=== PATIENT | female | born 2000 | race Caucasian/White ===

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

== ENCOUNTER 2020-01-21 13:56 | Emergency (ER) | payer SELFPAY ==
[2020-01-21 13:57] VITALS: BP 125/61; PULSE 95; RESP 16; TEMP 36.3; O2SAT 99; BMI 25.7
--- NOTE | 2020-01-21 14:53 | ED.RN ---
PT LEFT WITHOUT BEING SEEN. 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
== END 2020-01-21 15:23 | disposition left against medical advice (07) ==
LOC: ED 14:55
PROVIDERS: Emergency Provider Emergency Medicine; PCP Pediatrics
DX: F32.9 Major depressive disorder, single episode, unspecified (principal)

== ENCOUNTER 2021-11-07 22:04 | Emergency (ER) | payer MEDICAID, SELFPAY ==
[2021-11-07 22:06] VITALS: BP 129/84; PULSE 87; RESP 15; TEMP 36.6; O2SAT 98; BMI 26.6
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
== END 2021-11-07 23:04 | disposition home or self-care (01) ==
LOC: ED 22:59
PROVIDERS: Emergency Provider Emergency Medicine; Visit Provider Emergency Medicine
DX: R21 Rash and other nonspecific skin eruption (principal); F41.9 Anxiety disorder, unspecified
CPT/HCPCS: 99282

== ENCOUNTER 2021-12-21 15:01 | Emergency (ER) | payer MEDICAID, SELFPAY ==
[2021-12-21 15:02] VITALS: BP 137/98; PULSE 81; RESP 16; TEMP 37.1; O2SAT 100; BMI 28.5
[2021-12-21 15:04] VITALS: O2SAT 99
--- NOTE | 2021-12-21 15:24 | EDS_ITS ---
HPI History of Present Illness Chief Complaint: Shortness of Breath Narrative Narrative: Patient is concerned she may be having a reaction to her control that she started 2 days ago or possibly to the old house that she lives and that might have black mold. Patient states she was driving to work today and felt a little short of breath. She was also little nauseated. She had mild headache. She just did not feel well. Not lightheaded or syncopal. No chest pain. No leg pain or swelling. She just started a new control pill 2 days ago. She has been on it in the past with no problems. Ever since starting that she has had nausea and just has not felt well. She is not sure if the shortness of breath is related. It is already better although still present slightly. She has never vomited and is eating and drinking. No diarrhea. No fevers. No muscle aches. Patient also states that she lives in an old house that she is pretty sure has black mold in the basement. Has a lot of old house smells. She has a blanket up to block odors and air coming from the basement. But she is wondering if that might be contributing to. Patient does have a history of anxiety and panic attacks but it has been a long time since she has had 1. This mostly occurred was when she was in a stressful living situation. She also used to use inhalers for breathing and wheezing but has not used 1 in many years. She has no travel surgery immobilization personal or family history of DVT or PE. PFSH PFSH Home Medications albuterol sulfate 90 mcg/actuation aerosol inhaler (Ventolin HFA) 2 puff inhalation Q4H PRN PRN Wheezing ##1 12/21/21 [Rx Last Taken Unknown] norgestimate 0.25 mg-ethinyl estradiol 35 mcg tablet (Sprintec (28)) tab 12/21/21 [History Last Taken Unknown] ondansetron 4 mg disintegrating tablet 4 mg PO Q8H PRN nausea and vomiting #10 tabs 12/21/21 [Rx Last Taken Unknown] ulipristal 30 mg tablet (Beverly) mg PO 12/21/21 [History Last Taken Unknown] Allergy/AdvReac Type Severity Reaction Status Date / Time azithromycin [From Zithromax] Allergy Unknown Verified 12/21/21 15:01 Surgical History History of tonsillectomy Social History Smoking Status: Current some day smoker tobacco type: cigarettes and e- cigarettes ROS ROS ED Constitutional Constitutional ED: Denies chills, fever(s) or subjective Eyes Eyes: Denies change in vision ENT ENT ED: Denies ear pain, rhinorrhea or sore throat Cardiovascular Cardiovascular: Denies chest pain, palpitations or racing heartbeat Respiratory/Chest Respiratory/Chest: Reports dyspnea; Denies cough, dyspnea on exertion or sputum Gastrointestinal Gastrointestinal: Reports nausea; Denies abdominal pain, diarrhea or vomiting Genitourinary Genitourinary ED: Denies dysuria or hematuria Integumentary Denies rash Neurologic Neurologic: Denies paresthesias or weakness Psychiatric Psychiatric: Reports anxiety Endocrine Endocrinology: Denies polydipsia or polyuria Hematologic/Lymphatic Hematologic/Lymphatic: Denies easy bleeding, easy bruising or lymphadenopathy Allergic/Immunologic Allergic/Immunologic ED: Denies mouth swelling, tongue swelling or urticaria EXAM Physical Exam Const Vital Signs: 12/21/21 15:02 12/21/21 15:04 12/21/21 15:38 Temperature 98.7 F Temperature Source Oral Pulse Rate 81 80 Respiratory Rate 16 16 Respiratory Effort Short of Breath Respiratory Depth Normal Respiratory Pattern Normal Blood Pressure 137/98 H Blood Pressure Mean 111 Pulse Ox 100 Oxygen Delivery Method Room Air Room Air 12/21/21 15:38 Temperature Temperature Source Pulse Rate Respiratory Rate Respiratory Effort Respiratory Depth Respiratory Pattern Blood Pressure Blood Pressure Mean Pulse Ox 99 Oxygen Delivery Method Room Air Positive well nourished and well developed Constitutional Narrative: Patient is sitting in bed relaxed and comfortable. Oxygen saturation is 100% on room air the entire time. Breathing is easy and unlabored. General Appearance ED: well developed and NAD; Negative for pallor HEENT Reports moist mucous membranes HEENT Narrative: No erythema or swelling Eyes General Eye ED: Negative for scleral icterus Neck supple and no JVD Neck Narrative: No stridor Resp normal respiratory effort and clear to auscultation bilaterally Effort and Inspection: Negative for retractions Auscultation: Negative for rales, rhonchi or wheezes Cardio regular rate, regular rhythm and no murmurs Rate: Negative for tachycardic GI normal to inspection, nondistended, normoactive bowel sounds and non-tender Back/Spine no CVA tenderness Extremity normal to inspection Extremity Narrative: No edema, cords, tenderness, asymmetry or distended veins Neuro Sensorium / Orientation: alert Psych Psych Narrative: Mildly flat affect. Mood & Affect: Negative for depressed, anxious or tearful Skin no rashes or lesions noted General Skin Exam: Negative for jaundice or pallor MDM MDM MDM Narrative Medical decision making narrative: Patient's EKG is unremarkable. Single view chest x-ray looked at by me shows no sign of acute infiltrative process. No pneumothorax. Cardiac silhouette is normal. Patient is rechecked. She feels that the breathing treatment did help her breathing. She has a hint of the nausea but that is improving. She states that she was on the same control when she was about 16 and she remembers she had some problems with it but not sure what they were. She will talk to her doctor about options. She states she plans to have a tubal ligation in the next 2 or so months. I will write for some albuterol and Zofran. We discussed returning if she gets more dyspnea, fevers, chest pain, leg swelling hemoptysis or any other concerns EKG Initial EKG: Comments: EKG done for intermittent dyspnea read by me shows a normal sinus rhythm. Overall rate of 72. No ectopy noted. No acute ST elevation or depression. [place] interval, QRS duration and QTc normal. Discharge Plan Triage Chief Complaint: Shortness of Breath ED Provider: Lamont Rodriguez Dx/Rx/DC Orders Clinical Impression: Acute dyspnea, Acute bronchospasm, Nausea, Medication reaction Instructions: ED Dyspnea Prescriptions: New albuterol sulfate [Ventolin HFA] 90 mcg/actuation HFA aerosol inhaler 2 puff inhalation Q4H PRN PRN (Reason: Wheezing) Qty: 1 0RF ondansetron 4 mg tablet,disintegrating 4 mg PO Q8H PRN (Reason: nausea and vomiting) Qty: 10 0RF No Action norgestimate-ethinyl estradiol [Sprintec (28)] 0.25-35 mg-mcg tablet Label Comments: TAKE 1 ACTIVE TABLET ONLY BY MOUTH ONCE DAILY AT THE SAME TIME EACH DAY Beverly 30 mg tablet PO Primary Care Provider: Care Physician,No Primary Referrals: Care Physician,No Primary [Primary Care Provider] - Activity Restrictions/Additional Instructions: Follow-up with your doctor to discuss options of control. Disposition Disposition: Home, Self Care
[2021-12-21] MEDS: Ipratropium/Albuterol Sulfate 3 ML AMPUL.NEB INHALATION (15:35)
[2021-12-21] MEDS: Ondansetron ODT 4 MG Tablet PO (15:36)
--- NOTE | 2021-12-21 15:37 | EKG12_ITS ---
Test Reason : SOB Blood Pressure : / mmHG Vent. Rate : 072 BPM Atrial Rate : 072 BPM P-R Int : 138 ms QRS Dur : 084 ms QT Int : 390 ms P-R-T Axes : 018 025 017 degrees QTc Int : 427 ms Normal sinus rhythm Normal ECG Confirmed by MAUREEN OCASIO, MARTA ([id number]), editorial intern GISSELLE AGUILAR ([id number]) on 12/24/2021 11:00:32 AM Referred By: Confirmed By:MARTA REDDY MD
[2021-12-21 15:38] VITALS: PULSE 80; RESP 16; O2SAT 99
--- NOTE | 2021-12-21 15:50 | RAD_ITS ---
EXAM: XR CHEST, 1 VIEW CLINICAL INDICATION: cough TECHNIQUE: Frontal view of the chest. This report was created using [employer] report generation technology. COMPARISON: XR Chest dated 05/29/2014 FINDINGS: LUNGS AND PLEURAL SPACES: Normal. No consolidation or edema. No pneumothorax. No effusion. HEART: Normal heart size. MEDIASTINUM: Central airways are unremarkable. No mediastinal or hilar mass. BONES/JOINTS: No acute abnormality. SOFT TISSUES: Normal. RAD/Chest 1 View (Portable) IMPRESSION: No acute cardiopulmonary abnormality. Electronically Signed: Ivan Tran MD at 16:37 EDT ,
[2021-12-21 16:28] VITALS: BP 112/73; RESP 16; O2SAT 98
== END 2021-12-21 16:29 | disposition home or self-care (01) ==
PROVIDERS: Emergency Provider Emergency Medicine; Visit Provider Emergency Medicine
DX: T50.905A Adverse effect of unspecified drugs, medicaments and biological substances, initial encounter (principal); J98.01 Acute bronchospasm; F17.210 Nicotine dependence, cigarettes, uncomplicated; R11.0 Nausea; F41.9 Anxiety disorder, unspecified; R06.00 Dyspnea, unspecified; F17.290 Nicotine dependence, other tobacco product, uncomplicated
CPT/HCPCS: 71045; 93005; 94640; 99282

== ENCOUNTER 2022-08-10 19:52 | Emergency (ER) | payer MEDICAID, SELFPAY ==
[2022-08-10 19:53] VITALS: BP 122/82; PULSE 88; RESP 16; TEMP 37.1; O2SAT 98; BMI 25.9
--- NOTE | 2022-08-10 20:15 | EDS_ITS ---
HPI History of Present Illness Chief Complaint: Sore Throat Informant: patient Onset/Context/Timing Onset: Yesterday Narrative Narrative: Patient presents secondary to sore throat. She states developed symptoms yes terday complains of throat pain that is now painful with swallowing. She did not have a thermometer to check her temperature. She has had a mild cough. Patient also mentions that she has urinary frequency and some slight pressure with strong odor to her urine. She states that has been present since she had surgery in March and is concerned she may have a UTI. PFSH PFSH Home Medications albuterol sulfate 90 mcg/actuation aerosol inhaler (Ventolin HFA) 2 puff inhalation Q4H PRN PRN Wheezing ##1 12/21/21 [Rx Last Taken Unknown] norgestimate 0.25 mg-ethinyl estradiol 35 mcg tablet (Sprintec (28)) tab 12/21/21 [History Last Taken Unknown] ondansetron 4 mg disintegrating tablet 4 mg PO Q8H PRN nausea and vomiting #10 tabs 12/21/21 [Rx Last Taken Unknown] ulipristal 30 mg tablet (Beverly) mg PO 12/21/21 [History Last Taken Unknown] Allergy/AdvReac Type Severity Reaction Status Date / Time azithromycin [From Zithromax] Allergy Unknown Verified 08/10/22 19:55 Surgical History H/O bilateral salpingectomy History of tonsillectomy Social History Smoking Status: Current some day smoker tobacco type: cigarettes and e- cigarettes ROS ROS ED Constitutional Constitutional ED: Denies chills or fever(s) Eyes Eyes: Denies change in vision or discharge from eye(s) ENT ENT ED: Reports ear pain left and sore throat; Denies discharge from eye(s) or rhinorrhea Cardiovascular Cardiovascular: Denies chest pain or palpitations Respiratory/Chest Respiratory/Chest: Reports cough; Denies dyspnea Gastrointestinal Gastrointestinal: Denies abdominal pain, diarrhea, nausea or vomiting Genitourinary Genitourinary ED: Reports dysuria and urinary frequency; Denies difficulty urinating Musculoskeletal Musculoskeletal: Denies back pain or extremity pain Integumentary Denies Abrasions or rash Neurologic Neurologic: Denies headache(s) or weakness Allergic/Immunologic Allergic/Immunologic ED: Denies lip swelling or urticaria EXAM Physical Exam Const Vital Signs: 08/10/22 19:53 Temperature 98.8 F Temperature Source Temporal Pulse Rate 88 Respiratory Rate 16 Blood Pressure 122/82 H Blood Pressure Mean 95 Pulse Ox 98 Oxygen Delivery Method Room Air Positive well nourished and well developed General Appearance ED: well developed HEENT Reports normocephalic and head/scalp atraumatic HEENT Narrative: Mild posterior pharyngeal drainage. Uvula midline. Patient tolerating secretions well. Eyes PERRL and EOMs intact bilaterally Neck supple Chest Wall inspection of chest normal and palpation of chest normal Resp normal respiratory effort and clear to auscultation bilaterally Cardio regular rate and regular rhythm GI normal to inspection, nondistended, normoactive bowel sounds Palpation: soft Extremity normal to inspection Neuro oriented x3 and no sensory deficits noted Sensorium / Orientation: alert Motor Exam: strength 5/5 throughout Psych mental status grossly normal Skin no rashes or lesions noted MDM MDM MDM Narrative Medical decision making narrative: Rapid strep obtained to evaluate for acute infection. Urinalysis obtained to evaluate for UTI. Lab Data Attestation: I reviewed the patient's lab results. Labs: Laboratory Results - last 24 hr 08/10/22 20:10 Urine Color Yellow Urine Clarity Sl. Cloudy Urine pH 5.0 Ur Specific [place] 1.025 Urine Protein 30 H Urine Glucose (UA) Normal Urine Ketones 5 H Urine Occult Blood 10 H Urine Nitrite Negative Urine Bilirubin 1 H Urine Urobilinogen 1 H Ur Leukocyte Esterase 500 H Urine RBC 0-5 SEEN Urine WBC 5-10 SEEN Ur Squamous Epith Cells 10-25 SEEN Urine Bacteria 1+ Urine Mucus 0 SEEN Treatment and Re-Evaluation :: Rapid strep is negative. Patient was advised that it will be sent for a culture. Urinalysis is a contaminated sample with 10-25 epithelial cells. 5-10 white cells with 1+ bacteria are noted, however given the higher epithelial count I do not believe this represents acute infection. Nitrites are negative. Patient instructed to take Tylenol and ibuprofen along with pushing p.o. fluids. Cepacol lozenges will be ordered for her prior to discharge. Discharge Plan Triage Chief Complaint: Sore Throat Other Complaint: Complaint ED Provider: Fara Robles Dx/Rx/DC Orders Clinical Impression: Viral pharyngitis Instructions: ED Pharyngitis, Viral Prescriptions: No Action norgestimate-ethinyl estradiol [Sprintec (28)] 0.25-35 mg-mcg tablet Label Comments: TAKE 1 ACTIVE TABLET ONLY BY MOUTH ONCE DAILY AT THE SAME TIME EACH DAY Beverly 30 mg tablet PO albuterol sulfate [Ventolin HFA] 90 mcg/actuation HFA aerosol inhaler 2 puff inhalation Q4H PRN PRN (Reason: Wheezing) Qty: 1 0RF ondansetron 4 mg tablet,disintegrating 4 mg PO Q8H PRN (Reason: nausea and vomiting) Qty: 10 0RF Primary Care Provider: Care Physician,No Primary Referrals: Renuka Foster MD [Med Staff - Disability Insurance Claim Examiner] - As Needed Care Physician,No Primary [Primary Care Provider] - Disposition Disposition: Home, Self Care
[2022-08-10 20:17] LABS: Mucous, Urine 0 SEEN /hpf (<or=2+)
[2022-08-10 20:20] LABS: Color, Urine Yellow (Yellow); Glucose, Dipstick Normal (Normal); Ketone-Dipstick 5 mg/dl (Negative); Leukocyte Esterase-Dipstick 500 /ul (Negative); Nitrite-Dipstick Negative (Negative); Occult Blood-Urine 10 /ul (Negative); Protein-Dipstick 30 mg/dl (Negative); Specific Gravity, Urine 1.025 (1.002-1.030); Urine Clarity Sl. Cloudy (Clear); Urine Urobilinogen 1 mg/dl (Normal)
[2022-08-10 20:39] LABS: Squamous Epithelial Cells - UA 10-25 SEEN /hpf (5-10); Urine Bilirubin Dipstick 1 mg/dL (Negative)
[2022-08-10 20:40] LABS: Bacteria 1+ /hpf (None Seen); Red Blood Cells-Urine 0-5 SEEN /hpf (0-5); White Blood Cells 5-10 SEEN /hpf (0-5)
[2022-08-10] MEDS: BENZOCAINE/MENTHOL 1 LOZENGE 2 LOZENGE MUCOUS MEM (21:12)
== END 2022-08-10 21:13 | disposition home or self-care (01) ==
PROVIDERS: Emergency Provider Emergency Medicine; Visit Provider Emergency Medicine
DX: J02.8 Acute pharyngitis due to other specified organisms (principal); F17.210 Nicotine dependence, cigarettes, uncomplicated; R35.0 Frequency of micturition; F17.290 Nicotine dependence, other tobacco product, uncomplicated
CPT/HCPCS: 81001; 87880; 99283

== ENCOUNTER → 2022-08-20 | Outpatient (CLI) | payer MEDICAID, SELFPAY ==
[2022-08-20 14:52] LABS: Absolute Lymphocyte Count 1.88 X10^3/uL (0.83-4.51); Absolute Neutrophil Count 2.6 X10^3/uL (2.0-7.7); Basophil# 0.05 X10^3/uL; Eosinophil# 0.11 X10^3/uL; Eosinophils% 2.2 % (0-5); Hematocrit 38.5 % (37-47); Hemoglobin 13.5 g/dL (12.0-15.0); Lymphocyte # 1.88 X10^3/ul (0.83-4.51); Lymphocyte % 36.8 % (19-41); Mean Corp Hgb Conc 35.1 g/dL (32-36); Mean Corpuscular Volume 88.5 fL (81-99); Mean Platelet Vol. 10.8 fl (6.2-12.0); Monocyte# 0.44 X10^3/uL; Monocyte% 8.6 % (0-10); NRBC Flagged by Analyzer 0 % (0-5); Neutrophil # 2.61 X10^3/uL (2.7-7.7); Platelet Count 293 K/mm3 (150-450); RBC Distribution Width CV 11.9 % (11.6-14.6); RBC Distribution Width SD 38.6 fl (35.1-43.9); Red Blood Count 4.35 M/mm3 (4.2-5.4); White Blood Count 5.1 K/mm3 (4.4-11.0)
[2022-08-20 15:18] LABS: Hemoglobin A1c 4.7 % (3.8-5.6)
[2022-08-20 16:31] LABS: Estradiol 140.4 pg/mL; Follicle Stimulating Hormone 3.7 mIU/mL; Prolactin 22.6 ng/mL; T4 Free Direct 1.02 ng/dL (0.76-1.46); Thyroid Stim Hormone (TSH) 0.57 uIU/mL (0.358-3.74)
[2022-08-27 08:11] LABS: Testosterone, % Free 1.82 % (0.50-2.80); Testosterone, Free 0.24 ng/dL (0.10-0.85); Testosterone, Total 13 ng/dL (13-71)
== END | disposition home or self-care (01) ==
LOC: WOBLAB 13:56
PROVIDERS: Visit Provider Nurse Practitioner Women's Health
DX: L65.9 Nonscarring hair loss, unspecified (principal)
CPT/HCPCS: 36415; 82670; 83001; 83002; 83036; 84146; 84402; 84403; 84439; 84443; 85025

== ENCOUNTER 2023-03-11 19:03 | Emergency (ER) | payer MEDICAID, SELFPAY ==
[2023-03-11 19:05] VITALS: BP 135/77; PULSE 66; RESP 14; TEMP 36.3; O2SAT 99; BMI 24.2
--- NOTE | 2023-03-11 19:22 | EX.ED.VIS.PS ---
HPI <ANGEL Snow - Last Filed: 03/11/23 20:58> HPI - Psych History of Present Illness Chief Complaint: Trauma Narrative Narrative: Patient presenting today after a suicide attempt that was made on Friday morning. She reports that she did cut herself several times on her bilateral forearms and then attempted to hang herself with a rope due to feeling depressed and wanted to end her life. However, once she started she no longer wanted to and was able to get out of the rope and called crisis. She was able to develop a safety plan. She has had some residual soreness to her neck as well as soreness to her throat. She reports that this is getting much better. However, her boyfriend became concerned and wanted her to be brought in for evaluation. She denies any current thoughts of suicide or self-harm. She denies any homicidal thoughts, visual/tactile/auditory hallucinations, and substance use. PFSH <ANGEL Snow - Last Filed: 03/11/23 20:58> PFSH Allergy/AdvReac Type Severity Reaction Status Date / Time azithromycin [From Zithromax] Allergy Unknown Verified 08/10/22 19:55 Surgical History (Updated 03/11/23 @ 21:11 by Dorita Rodriguez) H/O bilateral salpingectomy History of tonsillectomy Social History Smoking Status: Current some day smoker tobacco type: cigarettes and e-cigarettes ROS <ANGEL Snow - Last Filed: 03/11/23 20:58> ROS ED Constitutional Constitutional ED: Denies chills or fever(s) Cardiovascular Cardiovascular: Denies chest pain Respiratory/Chest Respiratory/Chest: Denies cough or dyspnea Gastrointestinal Gastrointestinal: Denies abdominal pain, nausea or vomiting Musculoskeletal Musculoskeletal: Reports neck pain; Denies arthralgias or myalgias Integumentary Reports Abrasions Neurologic Neurologic: Denies paresthesias or weakness Psychiatric Psychiatric: Reports anxiety and depression; Denies suicidal ideation EXAM <ANGEL Snow - Last Filed: 03/11/23 20:58> Physical Exam Const Vital Signs: 03/11/23 19:05 03/11/23 21:10 03/11/23 21:13 Temperature 97.4 F L Temperature Source Temporal Pulse Rate 66 60 60 Respiratory Rate 14 16 16 Blood Pressure 135/77 H 98/54 L 90/54 L Blood Pressure Mean 96 68 66 Pulse Ox 99 Oxygen Delivery Method Room Air Room Air Positive well nourished, well developed and no apparent distress General Appearance ED: well developed HEENT Reports normocephalic and head/scalp atraumatic Mouth ED: Yes moist mucous membranes normal Eyes PERRL and EOMs intact bilaterally Neck full ROM and supple Neck Narrative: Circumferential abrasion to the neck, full range of motion to the neck, no midline cervical tenderness. Chest Wall inspection of chest normal Resp normal respiratory effort and clear to auscultation bilaterally Cardio regular rate and regular rhythm GI soft to palpation, non-tender, non-distended and no masses Back/Spine normal ROM and normal to inspection Extremity normal to inspection and full ROM Neuro oriented x3, CN's II-XII intact bilaterally, moves all extremities, no focal motor deficits and no sensory deficits noted Sensorium / Orientation: awake and alert Psych mental status grossly normal, thought process normal and cooperative Appearance: grossly normal Attitude: calm Activity / Motor Behavior: appropriate eye contact Speech: normal speech Insight: insight good Judgement: judgement good <Dr. Hubert Pleitez DO - Last Filed: 03/11/23 23:46> Physical Exam Const Vital Signs: 03/11/23 19:05 03/11/23 21:10 03/11/23 21:13 Temperature 97.4 F L Temperature Source Temporal Pulse Rate 66 60 60 Respiratory Rate 14 16 16 Blood Pressure 135/77 H 98/54 L 90/54 L Blood Pressure Mean 96 68 66 Pulse Ox 99 Oxygen Delivery Method Room Air Room Air [facility] <ANGEL Snow - Last Filed: 03/11/23 20:58> [facility] Narrative Medical decision making narrative: Patient presenting requesting evaluation of her neck. She reports that Friday she was feeling suicidal and depressed and attempted to hang herself with a rope, but immediately regretted her decision and was able to get out of the rope. She has had some residual soreness to her neck with pain swallowing that is getting better. She did talk with crisis immediately after and developed a care plan. She denies currently feeling suicidal. She does have a circumferential abrasion to her neck from the rope. CT of the neck will be obtained to rule out fracture and is negative for any acute findings. Wound care has been discussed with the patient and she has been educated on signs of infection to look out for and reasons to return. The social service manager will be speaking with patient to provide her mental health resources. She will be discharged home in stable condition and is comfortable with plan. Radiography Diagnostic Testing: Clinical Impression(s) from Imaging Studies Cervical Spine CT 03/11/23 19:35 IMPRESSION: Mild degenerative change. No fracture. Electronically Signed: Adonis Yang MD at 20:07 EST , <Dr. Hubert Pleitez, DO - Last Filed: 03/11/23 23:46> [facility] Radiography Diagnostic Testing: Clinical Impression(s) from Imaging Studies Cervical Spine CT 03/11/23 19:35 IMPRESSION: Mild degenerative change. No fracture. Electronically Signed: Adonis Yang MD at 20:07 EST , Treatment and Re-Evaluation Narrative: I have personally performed a face to face assessment of the patient and have reviewed the HIEU Note. I performed a substantive portion of the visit including all aspects of the following. My sanchez findings include: History: Patient presents with neck pain that began 4 days ago. Patient states she attempted to hang herself at that time. Patient states that she has followed up with her crisis counselor and developed a contract for safety. Patient no longer feels suicidal. Patient is concerned of the pain in her neck. Patient describes it as aching. Patient states it is worse whenever she palpates the area. Patient denies any paresthesias or weakness. Patient denies any difficulty breathing or difficulty swallowing. Exam: Vital signs are stable. Patient is afebrile. Patient is in no acute distress. Oral mucosa is pink and moist. Oropharynx is clear. Neck is supple. Trachea is midline. There is a superficial abrasion over the anterior neck. There is no active bleeding noted. There is no subcutaneous emphysema noted. There is no edema noted. Heart was regular rate and rhythm. Lungs are clear and equal bilaterally. Cranial nerves II through XII are intact. There are no focal motor or sensory deficits noted. Medical Decision Making: Differential diagnosis includes fracture and soft tissue injury. CT scan of the cervical spine will be obtained to assess for fracture and soft tissue swelling. CT scan of the cervical spine does not reveal any fracture or soft tissue swelling. This was interpreted by the radiologist and was also dependently reviewed by myself. Patient was advised of her findings. Patient is feeling better on reevaluation. Patient was instructed to use bacitracin or Neosporin ointment to her anterior neck. Patient was instructed to follow-up with her primary care physician and crisis counselor as scheduled. Patient understood and was agreeable with the plan. All questions were answered. Discharge Plan Triage Chief Complaint: Trauma Other Complaint: Suicidal ED Midlevel Provider: Malinda Walden ED Provider: Hubert Pleitez Dx/Rx/DC Orders Clinical Impression: Suicide attempt, Neck strain Instructions: ED Neck Sprain or Strain Primary Care Provider: Care Physician,No Primary Referrals: Care Physician,No Primary [Primary Care Provider] - Activity Restrictions/Additional Instructions: Follow-up with your PCP and return for any worsening of your symptoms. Disposition Disposition: Home, Self Care Discharge Date/Time: 03/11/23 21:14
--- NOTE | 2023-03-11 19:35 | CT_ITS ---
STUDY: CT CERVICAL SPINE WITHOUT CONTRAST REASON FOR EXAM: Female, 22 years old. Attempted to hang herself, neck pain RADIATION DOSAGE (If Supplied By Facility): CTDIvol = ( 11.79 ) mGy, DLP = ( 199.36 ) mGycm TECHNIQUE: High resolution transaxial imaging was performed without contrast material. Sagittal and coronal images were reconstructed. Individualized dose optimization techniques were used for this CT. COMPARISON: None FINDINGS: Normal craniovertebral junction. Normal anterior atlantoaxial articulation. Normal odontoid process. There is straightening of the normal cervical lordosis. There is no fracture. Normal vertebral bodies and posterior osseous elements. C2-3: Normal endplates. Normal disc height and morphology. Normal central canal and intervertebral neuroforamina. C3-4: Normal endplates. Normal disc height and morphology. Normal central canal and intervertebral neuroforamina. C4-5: Normal endplates. Normal disc height and morphology. Mild facet spurring on the left. Normal central canal and intervertebral neuroforamina. C5-6: Disc bulge and spurring. Normal central canal and intervertebral neuroforamina. C6-7: Normal endplates. Normal disc height and morphology. Normal central canal and intervertebral neuroforamina. C7-T1: Normal endplates. Normal disc height and morphology. Normal central canal and intervertebral neuroforamina. Normal visualized soft tissue structures. CT/Spine Cervical without Contras IMPRESSION: Mild degenerative change. No fracture. Electronically Signed: Adonis Yang MD at 20:07 EST ,
--- NOTE | 2023-03-11 21:02 | CM.ED ---
Social Work SW introduced self and role to patient. Pt denies SI and expresses regret about recent attempt. Pt previously safety planned by crisis and has intake appts. set up for services. SW provided emotional support. Pt given depression coping skills resource and patient agreed to referral for virtual IOP program through [facility]. Pt reports feeling much better but would like services to ensure she is caring for her mental health. Referral placed for [facility]. Shira Funez TICKET MARKER, PAPER STACKER
[2023-03-11 21:10] VITALS: BP 98/54; PULSE 60; RESP 16
[2023-03-11 21:13] VITALS: BP 90/54; PULSE 60; RESP 16
== END 2023-03-11 21:14 | disposition home or self-care (01) ==
PROVIDERS: Emergency Provider Emergency Medicine; Visit Provider Emergency Medicine
DX: T14.91XA Suicide attempt, initial encounter (principal); S10.91XA Abrasion of unspecified part of neck, initial encounter; S16.1XXA Strain of muscle, fascia and tendon at neck level, initial encounter; F17.210 Nicotine dependence, cigarettes, uncomplicated; F17.290 Nicotine dependence, other tobacco product, uncomplicated; F41.9 Anxiety disorder, unspecified; F32.A Depression, unspecified; S51.811A Laceration without foreign body of right forearm, initial encounter; S51.812A Laceration without foreign body of left forearm, initial encounter
CPT/HCPCS: 72125; 99282; A4216

== ENCOUNTER 2023-03-29 13:25 | Emergency (ER) | payer MEDICAID, SELFPAY ==
[2023-03-29 13:25] VITALS: BP 104/74; PULSE 108; RESP 18; TEMP 36.5; O2SAT 100; BMI 23.6
--- NOTE | 2023-03-29 13:56 | EX.ED.DYSGE1 ---
HPI <ANGEL Diane - Last Filed: 03/29/23 16:17> History of Present Illness Chief Complaint: Nausea/Vomiting Narrative Narrative: 22-year-old female states she has been depressed and not eating or drinking much for a week. She has intermittent nausea. Today she tried to sip water and have toast but she vomited. She feels very weak and dehydrated. No abdominal pain or diarrhea. No fever or chills. She takes no medications. Not suicidal or homicidal. PFSH <ANGEL Diane - Last Filed: 03/29/23 16:17> PFSH Home Medications ondansetron 4 mg disintegrating tablet 4 mg PO Q8H PRN PRN Nausea #10 tabs 03/29/23 [Rx Last Taken Unknown] Allergy/AdvReac Type Severity Reaction Status Date / Time azithromycin [From Zithromax] Allergy Unknown Verified 08/10/22 19:55 Surgical History H/O bilateral salpingectomy History of tonsillectomy Social History Smoking Status: Current some day smoker tobacco type: cigarettes and e-cigarettes ROS <ANGEL Diane - Last Filed: 03/29/23 16:17> ROS ED ROS Narrative Constitutional: Negative for fever, chills, malaise. CVS: Negative for chest pain, syncope. Respiratory: Negative for shortness of breath, cough. GI: Positive for nausea, vomiting. Negative for abdominal pain, diarrhea, constipation, melena, hematochezia. : Negative for dysuria. EXAM <ANGEL Diane - Last Filed: 03/29/23 16:17> Physical Exam Narrative Exam Narrative: CONST: Patient sitting in no acute distress. EYES: Normal inspection. ENT: Normal inspection, moist mucous membranes. NECK: Normal inspection. RESP: No respiratory distress, CTAB. CVS: Regular rate and rhythm, no murmur, no gallop. ABD: Soft and nontender, no guarding or rebound, nondistended. SKIN: Color normal, no rash, warm, dry, intact. EXTREMITIES: Normal appearance, no pedal edema. NEURO: Oriented x4. PSYCH: Normal affect. Const Vital Signs: 03/29/23 13:25 Temperature 97.7 F L Temperature Source Temporal Pulse Rate 108 H Respiratory Rate 18 Blood Pressure 104/74 Blood Pressure Mean 84 Pulse Ox 100 Oxygen Delivery Method Room Air <Dr. Stalin Waite MD - Last Filed: 03/29/23 14:59> Physical Exam Const Vital Signs: 03/29/23 13:25 Temperature 97.7 F L Temperature Source Temporal Pulse Rate 108 H Respiratory Rate 18 Blood Pressure 104/74 Blood Pressure Mean 84 Pulse Ox 100 Oxygen Delivery Method Room Air MDM <ANGEL Diane - Last Filed: 03/29/23 16:17> [facility] MDM Narrative Medical decision making narrative: Differential: Dehydration, electrolyte abnormality, TRINH I have personally performed a face to face assessment of the patient and have reviewed the HIEU Note. I performed a substantive portion of the visit including all aspects of the following. My sanchez findings include: History is 22-year-old female complaining nausea vomiting this morning. No diarrhea. No fever. No abdominal pain. No dysuria. Exam is [well-appearing 22-year-old vital signs stable afebrile. HEENT exam unremarkable. Lungs clear. Heart regular rhythm rate about 100. Abdomen soft, nontender, nondistended, normal bowel sounds without peritoneal signs. No obstruction. Moving all 4 extremities. Nontender no edema. Neurologically she is awake and alert. No focal motor deficits.] Medical Decision Making [young healthy female with nausea and vomiting. Treated with IV fluids Thank you and Zofran. Clinically looks well. Chemistries normal. Normal kidney function. Normal gap. Urinalysis shows ketones consistent with mild dehydration but otherwise unremarkable. She has been able to hold down fluids here. She will be discharged home.] Other additions or changes: [None] Lab Data Labs: Laboratory Results - last 24 hr 03/29/23 03/29/23 14:00 14:18 Sodium 136 Potassium 3.6 Chloride 101 Carbon Dioxide 22.0 Anion Gap 13 BUN 11 Creatinine 0.82 Estim Creat Clear Calc 92.93 Est GFR (MDRD) Af Amer 112 Est GFR (MDRD) Non-Af 93 BUN/Creatinine Ratio 13.5 Glucose 59 L Calcium 9.8 Urine Color Yellow Urine Clarity Sl. Cloudy Urine pH 5.0 Ur Specific [place] 1.030 Urine Protein 30 H Urine Glucose (UA) Normal Urine Ketones 150 A* Urine Occult Blood 10 H Urine Nitrite Negative Urine Bilirubin Negative Urine Urobilinogen Normal Ur Leukocyte Esterase 100 H Urine RBC 0 SEEN Urine WBC 0-5 SEEN Ur Squamous Epith Cells 25-50 SEEN Urine Bacteria 2+ Urine Mucus 0 SEEN Urine Test Negative <Dr. Stalin Waite MD - Last Filed: 03/29/23 14:59> [facility] Narrative Medical decision making narrative: I have personally performed a face to face assessment of the patient and have reviewed the HIEU Note. I performed a substantive portion of the visit including all aspects of the following. My sanchez findings include: History is 22-year-old female complaining nausea vomiting this morning. No diarrhea. No fever. No abdominal pain. No dysuria. Exam is [well-appearing 22-year-old vital signs stable afebrile. HEENT exam unremarkable. Lungs clear. Heart regular rhythm rate about 100. Abdomen soft, nontender, nondistended, normal bowel sounds without peritoneal signs. No obstruction. Moving all 4 extremities. Nontender no edema. Neurologically she is awake and alert. No focal motor deficits.] Medical Decision Making [young healthy female with nausea and vomiting. Treated with IV fluids Thank you and Zofran. Clinically looks well. Chemistries normal. Normal kidney function. Normal gap. Urinalysis shows ketones consistent with mild dehydration but otherwise unremarkable. She has been able to hold down fluids here. She will be discharged home.] Other additions or changes: [None] Lab Data Labs: Laboratory Results - last 24 hr 03/29/23 03/29/23 14:00 14:18 Sodium 136 Potassium 3.6 Chloride 101 Carbon Dioxide 22.0 Anion Gap 13 BUN 11 Creatinine 0.82 Estim Creat Clear Calc 92.93 Est GFR (MDRD) Af Amer 112 Est GFR (MDRD) Non-Af 93 BUN/Creatinine Ratio 13.5 Glucose 59 L Calcium 9.8 Urine Color Yellow Urine Clarity Sl. Cloudy Urine pH 5.0 Ur Specific [place] 1.030 Urine Protein 30 H Urine Glucose (UA) Normal Urine Ketones 150 A* Urine Occult Blood 10 H Urine Nitrite Negative Urine Bilirubin Negative Urine Urobilinogen Normal Ur Leukocyte Esterase 100 H Urine RBC 0 SEEN Urine WBC 0-5 SEEN Ur Squamous Epith Cells 25-50 SEEN Urine Bacteria 2+ Urine Mucus 0 SEEN Urine Test Negative Discharge Plan Triage Chief Complaint: Nausea/Vomiting ED Midlevel Provider: Pattie Olea ED Provider: Stalin Waite Dx/Rx/DC Orders Clinical Impression: Acute dehydration, Nausea and vomiting Instructions: Dehydration Prescriptions: New ondansetron 4 mg tablet,disintegrating 4 mg PO Q8H PRN PRN (Reason: Nausea) Qty: 10 0RF Primary Care Provider: Care Physician,No Primary Referrals: Care Physician,No Primary [Primary Care Provider] - Activity Restrictions/Additional Instructions: I prescribed nausea medicine to take as needed. Please drink fluids, Gatorade etc. and rest. Disposition Disposition: Home, Self Care Discharge Date/Time: 03/29/23 15:27
[2023-03-29 14:05] LABS: Mucous, Urine 0 SEEN /hpf (<or=2+); Red Blood Cells-Urine 0 SEEN /hpf (0-5)
[2023-03-29 14:11] LABS: Color, Urine Yellow (Yellow); Glucose, Dipstick Normal (Normal); Leukocyte Esterase-Dipstick 100 /ul (Negative); Nitrite-Dipstick Negative (Negative); Occult Blood-Urine 10 /ul (Negative); Protein-Dipstick 30 mg/dl (Negative); Urine Bilirubin Dipstick Negative (Negative); Urine Clarity Sl. Cloudy (Clear); Urine Urobilinogen Normal (Normal)
[2023-03-29 14:18] LABS: Ketone-Dipstick 150 mg/dl (Negative); White Blood Cells 0-5 SEEN /hpf (0-5)
[2023-03-29 14:23] LABS: Bacteria 2+ /hpf (None Seen); Squamous Epithelial Cells - UA 25-50 SEEN /hpf (5-10)
[2023-03-29] MEDS: Ondansetron 4 MG/2 ML Vial IV (14:23)
[2023-03-29] MEDS: 0.9% Normal Saline (1000mL) 1,000 ML 999 ML IV (14:23)
[2023-03-29 14:24] LABS: Internal QC Validated? YES +Cl - CLEAR BKGD; Pregnancy, Urine Negative Negative; Record Kit Lot#,Urine Preg 667200
[2023-03-29 14:45] LABS: Anion Gap 13 (5-15); BUN 11 mg/dL (7-18); BUN/Creat Ratio 13.5 RATIO (10-20); Calcium,Total 9.8 mg/dL (8.5-10.1); Chloride 101 mmol/L (98-107); Creatinine, Serum 0.82 mg/dL (0.55-1.02); EST Glomerular Filtration Rate 93 mL/min (>60); Est Glom Filt Rate - Afr Amer 112 mL/min (>60); Estimated Creatinine Clearance 92.93 ml/min; Glucose 59 mg/dL (74-106); Potassium 3.6 mmol/L (3.5-5.1); Sodium Level 136 mmol/L (136-145)
== END 2023-03-29 15:27 | disposition home or self-care (01) ==
PROVIDERS: Physician Assistant; Emergency Provider Emergency Medicine; Visit Provider Emergency Medicine
DX: R11.2 Nausea with vomiting, unspecified (principal); E86.0 Dehydration; F17.210 Nicotine dependence, cigarettes, uncomplicated; F17.290 Nicotine dependence, other tobacco product, uncomplicated
CPT/HCPCS: 80048; 81001; 81025; 96361; 96374; 99282; J7030; A4216; J2405

== ENCOUNTER → 2023-08-19 | Outpatient (CLI) | payer MEDICAID, SELFPAY ==
[2023-08-19 16:44] LABS: Hemoglobin A1c 4.7 % (3.8-5.6)
[2023-08-19 16:52] LABS: Vitamin B12 506 pg/mL (211-911); Vitamin D,25 Hydroxy 35.2 ng/mL
[2023-08-19 17:03] LABS: ALB/GLOB Ratio 1.4 RATIO (0.9-2.4); AST(SGOT) 16 U/L (15-37); Alanine Aminotransfer ALT/SGPT 21 U/L (13-56); Albumin, Serum 4.5 g/dL (3.2-5.0); Alkaline Phosphatase 53 U/L (45-117); Anion Gap 5 (5-15); BUN 8 mg/dL (7-18); BUN/Creat Ratio 10.3 RATIO (10-20); Calcium,Total 9.3 mg/dL (8.5-10.1); Chloride 104 mmol/L (98-107); Creatinine, Serum 0.78 mg/dL (0.55-1.02); EST Glomerular Filtration Rate 98 mL/min (>60); Est Glom Filt Rate - Afr Amer 118 mL/min (>60); Globulin 3.2 g/dL (2.2-4.2); Glucose 85 mg/dL (74-106); Potassium 3.9 mmol/L (3.5-5.1); Protein, Total 7.7 g/dL (6.4-8.2); Sodium Level 138 mmol/L (136-145); Thyroid Stim Hormone (TSH) 0.44 uIU/mL (0.358-3.74)
[2023-08-19 17:08] LABS: Hematocrit 40.9 % (37-47); Hemoglobin 13.8 g/dL (12.0-15.0); Mean Corp Hgb Conc 33.7 g/dL (32-36); Mean Corpuscular Hgb 30.5 pg (27.0-32.0); Mean Corpuscular Volume 90.3 fL (81-99); Mean Platelet Vol. 11.1 fl (6.2-12.0); Platelet Count 282 K/mm3 (150-450); RBC Distribution Width CV 11.9 % (11.6-14.6); RBC Distribution Width SD 39.7 fl (35.1-43.9); Red Blood Count 4.53 M/mm3 (4.2-5.4); White Blood Count 4.4 K/mm3 (4.4-11.0)
== END | disposition home or self-care (01) ==
PROVIDERS: Referring Provider Counselor Mental Health; Visit Provider Counselor Mental Health
DX: E55.9 Vitamin D deficiency, unspecified (principal); Z79.899 Other long term (current) drug therapy
CPT/HCPCS: 36415; 80053; 82306; 82607; 82746; 83036; 84443; 85027

== ENCOUNTER 2023-10-27 22:03 | Emergency (ER) | payer MEDICAID, SELFPAY ==
[2023-10-27 22:06] VITALS: BP 112/72; PULSE 88; RESP 18; TEMP 36.6; O2SAT 99; BMI 21.6
--- NOTE | 2023-10-27 22:22 | EDS_ITS ---
HPI History of Present Illness Chief Complaint: Lower Extremity Injury Informant: patient Narrative Narrative: 23-year-old female states she injured her left third toe tonight just prior to arrival when she accidentally stepped on a nail outside while taking out the trash. She states it went through her croc/shoe, noticed that it felt funny and then when she took it off she noticed there was bleeding. She denied of severe pain. Last tetanus was when she was a child she thinks, states that is the main reason for coming here. She is healthy not a diabetic. Tetanus Immunization: >10 years PFSH PFSH no medical history Home Medications ?Medication ?Instructions ?Recorded ?Last Taken ?Type ondansetron 4 mg disintegrating 4 mg PO Q8H PRN PRN Nausea #10 tabs 03/29/23 Unknown Rx tablet Allergy/AdvReac Type Severity Reaction Status Date / Time azithromycin (From Zithromax) Allergy Unknown Verified 10/27/23 22:06 Surgical History H/O bilateral salpingectomy History of tonsillectomy Social History Smoking Status: Current some day smoker tobacco type: cigarettes and e- cigarettes ROS ROS ED Constitutional Constitutional ED: Denies chills or fever(s) Musculoskeletal Musculoskeletal: Denies extremity pain or neck pain Integumentary Reports wounds; Denies Abrasions or rash Neurologic Neurologic: Denies paresthesias or weakness EXAM Physical Exam Const Vital Signs: 10/27/23 22:06 Temperature 98 F Temperature Source Temporal Pulse Rate 88 Respiratory Rate 18 Blood Pressure 112/72 Blood Pressure Mean 85 Pulse Ox 99 Oxygen Delivery Method Room Air Positive well nourished and well developed General Appearance ED: well developed and NAD Neck full ROM and supple Back/Spine normal ROM and normal to inspection Extremity full ROM Extremity Narrative: Left foot: Very superficial abrasion with a drop of blood and no tenderness to the side tibially of the pad of the left third toe. There is no bony tenderness and no nail injury or subungual hematoma. Neuro oriented x3, no focal motor deficits and no sensory deficits noted Sensorium / Orientation: alert Psych mental status grossly normal and thought process normal Skin Skin Narrative: Abrasion versus very small puncture wound left third toe see above Rashes: no rashes MDM MDM MDM Narrative Medical decision making narrative: This wound is so superficial that it does not look/examine like a deep puncture wound. It looks like her toe just got next. We updated her tetanus, but I do not think she is systemic antibiotics for this. I am having nurses soak it in chlorhexidine, dressed it with bacitracin, and have the patient continue to care for clinically with topical antibiotics, watch for signs of infection and to return if she does she is comfortable with that plan and agrees. Discharge Plan Triage Chief Complaint: Lower Extremity Injury ED Provider: Adonis Garcia Dx/Rx/DC Orders Clinical Impression: Immunization, tetanus-diphtheria, Puncture wound of toe of left foot Instructions: Tdap Vaccine, ED Puncture Wound (General) Prescriptions: No Action ondansetron 4 mg tablet,disintegrating 4 mg PO Q8H PRN PRN (Reason: Nausea) Qty: 10 0RF Primary Care Provider: Care Physician,No Primary Referrals: Care Physician,No Primary [Primary Care Provider] - Doctor,Your [Non-Staff] - As Needed Activity Restrictions/Additional Instructions: For the first 2 days, would be helpful to soak in warm soapy water for 10 or 15 minutes once daily. In addition to this, change the Band-Aid twice daily, applying a new one with antibiotic ointment each time, and inspecting the wound to make sure you are not seeing any signs of infection, which would be redness, swelling, pain, white thick discharge. Print Language: [place]ian Disposition Disposition: Home, Self Care
[2023-10-27] MEDS: Diphth,Pertuss(Acell),Tet Vac 0.5 ML Vial IM (22:55)
[2023-10-27 23:07] VITALS: BP 108/72; PULSE 70; RESP 16; TEMP 36.7; O2SAT 98
== END 2023-10-27 23:08 | disposition home or self-care (01) ==
PROVIDERS: Emergency Provider Emergency Medicine; Visit Provider Emergency Medicine
DX: S91.135A Puncture wound without foreign body of left lesser toe(s) without damage to nail, initial encounter (principal); F17.210 Nicotine dependence, cigarettes, uncomplicated; F17.290 Nicotine dependence, other tobacco product, uncomplicated; Z23 Encounter for immunization; W45.0XXA Nail entering through skin, initial encounter
CPT/HCPCS: 90471; 99282

== ENCOUNTER 2024-05-02 22:17 | Emergency (ER) | payer MEDICAID, SELFPAY ==
[2024-05-02 22:18] VITALS: BP 138/115; PULSE 86; RESP 16; TEMP 36.6; O2SAT 100; BMI 20.6
--- NOTE | 2024-05-02 23:30 | EX.ED.DYSGE1 ---
HPI History of Present Illness Chief Complaint: Dizziness Informant: patient and spouse/S.O. (Boyfriend) Onset/Context/Timing Onset: Today Context: Gradual Onset Timing: Continuous Quality: Dizzy Location: Generalized Worsened by: Nothing Relieved by: Nothing Narrative Narrative: Patient presents with weakness, dizziness, and tingling that began today. Patient states she had been using lidocaine cream on her feet for a tattoo.. She patient states she felt some tingling in her lower face today. Patient states she felt dizzy and had some tightness in her chest. Patient states it came on gradually. Patient states it has been constant. Patient admits to some nausea but denies any vomiting. Patient admits to some shortness of breath but denies any cough. Patient denies any fevers or chills. Patient states she did have an episode of tinnitus earlier today but this has resolved. [facility] Medical History Anxiety Asthma Home Medications ?Medication ?Instructions ?Recorded ?Last Taken ?Type benztropine 0.5 mg tablet 0.25 - 0.5 mg PO BID PRN PRN 05/02/24 Unknown History sweating bupropion HCl 100 mg tablet,12 hr 100 mg PO BID 05/02/24 Unknown History sustained-release Allergy/AdvReac Type Severity Reaction Status Date / Time azithromycin (From Zithromax) Allergy Unknown Verified 05/02/24 22:21 Surgical History H/O bilateral salpingectomy History of tonsillectomy Social History Smoking Status: Never smoker ROS ROS ED Constitutional Constitutional ED: Denies chills or fever(s) Eyes Eyes: Denies blurry vision or change in vision ENT ENT ED: Denies rhinorrhea or sore throat Cardiovascular Cardiovascular: Denies chest pain or palpitations Respiratory/Chest Respiratory/Chest: Reports dyspnea; Denies cough Gastrointestinal Gastrointestinal: Reports nausea; Denies vomiting Genitourinary Genitourinary ED: Denies dysuria or hematuria Musculoskeletal Musculoskeletal: Denies back pain or neck pain Integumentary Denies abscess or rash Neurologic Neurologic: Denies headache(s) or weakness Allergic/Immunologic Allergic/Immunologic ED: Denies mouth swelling or urticaria EXAM Physical Exam Const Vital Signs: 05/02/24 22:18 Temperature 98 F Temperature Source Oral Pulse Rate 86 Respiratory Rate 16 Blood Pressure 138/115 H Blood Pressure Mean 122 Pulse Ox 100 Oxygen Delivery Method Room Air Positive well nourished and well developed General Appearance ED: well developed and NAD HEENT Reports moist mucous membranes Neck supple and no JVD Resp normal respiratory effort and clear to auscultation bilaterally Cardio regular rate and regular rhythm GI non-tender and non-distended Palpation: soft Extremity normal to inspection General Extremety ED: Negative for edema or tenderness General Extremity: Negative for edema Neuro oriented x3, CN's II-XII intact bilaterally and no sensory deficits noted Sensorium / Orientation: alert Motor Exam: strength 5/5 throughout MDM MDM MDM Narrative Medical decision making narrative: Differential diagnosis includes electrolyte abnormality, viral illness, anxiety, and dehydration. CBC will be obtained to assess for leukocytosis and anemia. Basic metabolic profile will be obtained to assess for electrolyte abnormality and renal function. Treatment and Re-Evaluation :: Patient was given IV fluids and Zofran. Patient did not want IV fluids or lab work drawn. Patient states that she feels better and wants to go home. Patient was advised to stay and have lab work drawn to check for electrolyte abnormality, anemia, and . Patient did not want to stay for this. Patient will sign out AGAINST MEDICAL ADVICE. Patient was instructed to follow-up with her primary care physician in 5 to 7 days. Discharge Plan Triage Chief Complaint: Dizziness ED Provider: Hubert Pleitez Dx/Rx/DC Orders Clinical Impression: Paresthesias, Dizziness Prescriptions: No Action benztropine 0.5 mg tablet 0.25 - 0.5 mg PO BID PRN PRN (Reason: sweating) bupropion HCl 100 mg tablet sustained-release 12 hr 100 mg PO BID Primary Care Provider: Care Physician,No Primary Referrals: Care Physician,No Primary [Primary Care Provider] - Print Language: Malay Disposition Disposition: Against Medical Advice Discharge Date/Time: 05/03/24 00:44
== END 2024-05-03 00:44 | disposition left against medical advice (07) ==
PROVIDERS: Emergency Provider Emergency Medicine; Visit Provider Emergency Medicine
DX: R20.2 Paresthesia of skin (principal); R42 Dizziness and giddiness; R06.02 Shortness of breath; R11.0 Nausea; J45.909 Unspecified asthma, uncomplicated
CPT/HCPCS: 96374; 99282

== ENCOUNTER → 2025-01-19 | Outpatient (CLI) | payer MEDICAID, SELFPAY ==
[2025-01-19 16:40] LABS: Hematocrit 40.0 % (37-47); Hemoglobin 13.8 g/dL (12.0-15.0); Immature Granulocytes Count 0.020 X10^3/uL (0.0-0.0); Mean Corp Hgb Conc 34.5 g/dL (32-36); Mean Corpuscular Volume 88.7 fL (81-99); Mean Platelet Vol. 10.7 fl (6.2-12.0); NRBC Flagged by Analyzer 0 % (0-5); Platelet Count 278 K/mm3 (150-450); RBC Distribution Width CV 12.2 % (11.6-14.6); RBC Distribution Width SD 39.8 fl (35.1-43.9); Red Blood Count 4.51 M/mm3 (4.2-5.4); White Blood Count 4.9 K/mm3 (4.4-11.0)
[2025-01-19 17:18] LABS: AST(SGOT) 21 U/L (<=31); Alanine Aminotransfer ALT/SGPT 21 U/L (<=34); Albumin, Serum 4.7 g/dL (3.5-5.0); Alkaline Phosphatase 51 U/L (35-104); Anion Gap 9 (5-15); BUN 8 mg/dL (4-19); BUN/Creat Ratio 11.9 RATIO (10-20); Calcium,Total 9.4 mg/dL (7.6-11.0); Carbon Dioxide 26.4 mmol/L (21.0-32.0); Chloride 103 mmol/L (98-108); Globulin 2.6 g/dL (2.2-4.2); Glucose 85 mg/dL (70-99); Potassium 4.0 mmol/L (3.3-5.1); Vitamin B12 614 pg/mL (180-914); Vitamin D,25 Hydroxy 18.1 ng/mL (30-100)
[2025-01-19 17:27] LABS: FOLATES,SERUM (FOLIC ACID) 11.20 ng/mL (4.60-34.80)
[2025-01-19 18:21] LABS: CRP < 3.00 mg/L (0.0-3.0); Magnesium 1.9 mg/dL (1.5-2.2)
[2025-01-21 13:08] LABS: ANTINUCLEAR ANTIBODIES DIRECT Negative (Negative); SJOGREN'S Anti-SS-A test < 0.2 AI (0.0-0.9); SJOGREN'S Anti-SS-B test < 0.2 AI (0.0-0.9)
== END | disposition home or self-care (01) ==
LOC: VSLAB 10:47
PROVIDERS: PCP Nurse Practitioner Family; Visit Provider Nurse Practitioner Family
DX: M25.50 Pain in unspecified joint (principal); R53.83 Other fatigue
CPT/HCPCS: 36415; 80053; 82306; 82607; 82746; 83735; 84439; 84443; 85025; 85652; 86038; 86140; 86235; 86376; 86431